=== PATIENT | female | born 1930 | race Caucasian/White ===

== ENCOUNTER 2018-10-02 22:05 | Inpatient (IN) | payer MEDICARE, OTHER | END 2018-10-05 14:30 | disposition designated cancer center or children's hospital (05) | LOC: 4TH 22:05 | DX: N17.9 Acute kidney failure, unspecified (principal); I10 Essential (primary) hypertension; F03.90 Unspecified dementia, unspecified severity, without behavioral disturbance, psychotic disturbance, mood disturbance, and anxiety; R79.89 Other specified abnormal findings of blood chemistry; E03.9 Hypothyroidism, unspecified; R63.4 Abnormal weight loss; K21.9 Gastro-esophageal reflux disease without esophagitis; M19.91 Primary osteoarthritis, unspecified site; F41.9 Anxiety disorder, unspecified; F32.9 Major depressive disorder, single episode, unspecified ==

== ENCOUNTER 2018-10-06 13:32 | Emergency (ER) | payer MEDICARE ==
[~2018-10-06] VITALS: Ht 162.6 cm; Wt 77.1 kg
[~2018-10-06 13:32] MED LIST: ACET-2267 PO; AMOX500C2 PO; DOCU-143 PO; FURO40TA4 PO; LEVO137T40 PO; METO2.5T PO; NIAC-4 PO; ONDN4T PO; RANI-10 PO; SOLI10TA2 PO; SULF1TAB35 PO
--- OUTSIDE RECORDS SUMMARY | 2018-10-06 13:39 | XMS REPORT | Continuity of Care Document ---
Author Author [facility] Address Unknown Phone Unavailable Allergies Active Description Code Type Severity Reaction Onset Reported/Identified Relationship to Patient Clinical Status Yes citalopram [id number] Drug Allergy Unknown N/A 10/02/2018 Yes No Known Drug Allergies [id number] Drug Allergy Unknown N/A 10/02/2018 Medications There is no data. Problems Date Dx Coded Attending Type Code Diagnosis Diagnosed By 05/16/2017 ROCÍO CALLAWAY, CIERRA Dumont N39.0 Urinary tract infection, site not specified 10/04/2018 GORDON CHAVEZ MD Ot E03.9 HYPOTHYROIDISM, UNSPECIFIED 10/04/2018 GORDON CHAVEZ MD Ot F03.90 UNSPECIFIED DEMENTIA WITHOUT BEHAVIORAL 10/04/2018 GORDON CHAVEZ MD Ot F32.9 MAJOR DEPRESSIVE DISORDER, SINGLE EPISOD 10/04/2018 GORDON CHAVEZ MD Ot F41.9 ANXIETY DISORDER, UNSPECIFIED 10/04/2018 GORDON CHAVEZ MD Ot I10 ESSENTIAL (PRIMARY) HYPERTENSION 10/04/2018 GORDON CHAVEZ MD Ot K21.9 GASTRO-ESOPHAGEAL REFLUX DISEASE WITHOUT 10/04/2018 GORDON CHAVEZ MD Ot M19.91 PRIMARY OSTEOARTHRITIS, UNSPECIFIED SITE 10/04/2018 GORDON CHAVEZ MD Ot N17.9 ACUTE KIDNEY FAILURE, UNSPECIFIED 10/04/2018 GORDON CHAVEZ MD Ot R63.4 ABNORMAL WEIGHT LOSS 10/04/2018 GORDON CHAVEZ MD Ot R79.89 OTHER SPECIFIED ABNORMAL FINDINGS OF BLO 10/04/2018 GORDON CHAVEZ MD Ot E03.9 HYPOTHYROIDISM, UNSPECIFIED 10/04/2018 GORDON CHAVEZ MD Ot F03.90 UNSPECIFIED DEMENTIA WITHOUT BEHAVIORAL 10/04/2018 GORDON CHAVEZ MD Ot F32.9 MAJOR DEPRESSIVE DISORDER, SINGLE EPISOD 10/04/2018 GORDON CHAVEZ MD Ot F41.9 ANXIETY DISORDER, UNSPECIFIED 10/04/2018 GORDON CHAVEZ MD Ot I10 ESSENTIAL (PRIMARY) HYPERTENSION 10/04/2018 GORDON CHAVEZ MD Ot K21.9 GASTRO-ESOPHAGEAL REFLUX DISEASE WITHOUT 10/04/2018 GORDON CHAVEZ MD Ot M19.91 PRIMARY OSTEOARTHRITIS, UNSPECIFIED SITE 10/04/2018 GORDON CHAVEZ MD Ot N17.9 ACUTE KIDNEY FAILURE, UNSPECIFIED 10/04/2018 GORDON CHAVEZ MD Ot R63.4 ABNORMAL WEIGHT LOSS 10/04/2018 GORDON CHAVEZ MD Ot R79.89 OTHER SPECIFIED ABNORMAL FINDINGS OF BLO 10/05/2018 GORDON CHAVEZ MD Ot E03.9 HYPOTHYROIDISM, UNSPECIFIED 10/05/2018 GORDON CHAVEZ MD Ot F03.90 UNSPECIFIED DEMENTIA WITHOUT BEHAVIORAL 10/05/2018 GORDON CHAVEZ MD Ot F32.9 MAJOR DEPRESSIVE DISORDER, SINGLE EPISOD 10/05/2018 GORDON CHAVEZ MD Ot F41.9 ANXIETY DISORDER, UNSPECIFIED 10/05/2018 GORDON CHAVEZ MD Ot I10 ESSENTIAL (PRIMARY) HYPERTENSION 10/05/2018 GORDON CHAVEZ MD Ot K21.9 GASTRO-ESOPHAGEAL REFLUX DISEASE WITHOUT 10/05/2018 GORDON CHAVEZ MD Ot M19.91 PRIMARY OSTEOARTHRITIS, UNSPECIFIED SITE 10/05/2018 GORDON CHAVEZ MD Ot N17.9 ACUTE KIDNEY FAILURE, UNSPECIFIED 10/05/2018 GORDON CHAVEZ MD Ot R63.4 ABNORMAL WEIGHT LOSS 10/05/2018 OGRDON CHAVEZ MD Ot R79.89 OTHER SPECIFIED ABNORMAL FINDINGS OF BLO Procedures Code [place] [address] CULTURE AEROBIC IDENTIFY CIERRA ALFORD MD 05/16/2017 96108 URINE CULTURE/COLONY COUNT CIERRA ALFORD MD 05/16/2017 51632 MICROBE SUSCEPTIBLE RENE CIERRA ALFORD MD 05/16/2017 Results Test Result Range Complete blood count (CBC) with automated white blood cell (WBC) differential - 10/03/18 05:29 Blood leukocytes automated count (number/volume) 10.9 10*3/uL 4.3-11.0 Blood erythrocytes automated count (number/volume) 3.33 10*6/uL 4.35-5.85 Venous blood hemoglobin measurement (mass/volume) 11.0 g/dL 11.5-16.0 Blood hematocrit (volume fraction) 33 % 35-52 Automated erythrocyte mean corpuscular volume 100 [foz_us] 80-99 Automated erythrocyte mean corpuscular hemoglobin (mass per erythrocyte) 33 pg 25-34 Automated erythrocyte mean corpuscular hemoglobin concentration measurement ( mass/volume) 33 g/dL 32-36 Automated erythrocyte distribution width ratio 14.5 % 10.0-14.5 Automated blood platelet count (count/volume) 151 10*3/uL 130-400 Automated blood platelet mean volume measurement 10.7 [foz_us] 7.4-10.4 Automated blood neutrophils/100 leukocytes 78 % 42-75 Automated blood lymphocytes/100 leukocytes 12 % 12-44 Blood monocytes/100 leukocytes 10 % 0-12 Automated blood eosinophils/100 leukocytes 0 % 0-10 Automated blood basophils/100 leukocytes 0 % 0-10 Blood neutrophils automated count (number/volume) 8.5 10*3 1.8-7.8 Blood lymphocytes automated count (number/volume) 1.3 10*3 1.0-4.0 Blood monocytes automated count (number/volume) 1.0 10*3 0.0-1.0 Automated eosinophil count 0.0 10*3/uL 0.0-0.3 Automated blood basophil count (count/volume) 0.0 10*3/uL 0.0-0.1 Comprehensive metabolic panel - 10/03/18 05:29 Serum or plasma sodium measurement (moles/volume) 139 mmol/L 135-145 Serum or plasma potassium measurement (moles/volume) 3.5 mmol/L 3.6-5.0 Serum or plasma chloride measurement (moles/volume) 100 mmol/L 98-107 Carbon dioxide 26 mmol/L 21-32 Serum or plasma anion gap determination (moles/volume) 13 mmol/L 5-14 Serum or plasma urea nitrogen measurement (mass/volume) 56 mg/dL 7-18 Serum or plasma creatinine measurement (mass/volume) 3.20 mg/dL 0.60-1.30 Serum or plasma urea nitrogen/creatinine mass ratio 18 NRG Serum or plasma creatinine measurement with calculation of estimated glomerular filtration rate 14 NRG Serum or plasma glucose measurement (mass/volume) 122 mg/dL 70-105 Serum or plasma calcium measurement (mass/volume) 9.4 mg/dL 8.5-10.1 Serum or plasma total bilirubin measurement (mass/volume) 0.7 mg/dL 0.1-1.0 Serum or plasma alkaline phosphatase measurement (enzymatic activity/volume) 47 U/L 40-136 Serum or plasma aspartate aminotransferase measurement (enzymatic activity/ volume) 20 U/L 5-34 Serum or plasma alanine aminotransferase measurement (enzymatic activity/volume ) 9 U/L 0-55 Serum or plasma protein measurement (mass/volume) 6.7 g/dL 6.4-8.2 Serum or plasma albumin measurement (mass/volume) 3.8 g/dL 3.2-4.5 CALCIUM CORRECTED 9.6 mg/dL 8.5-10.1 Serum or plasma troponin i.cardiac measurement (mass/volume) - 10/03/18 05:29 Serum or plasma troponin i.cardiac measurement (mass/volume) < ng/ mL <0.028 Whole blood basic metabolic panel - 10/04/18 06:19 Serum or plasma sodium measurement (moles/volume) 138 mmol/L 135-145 Serum or plasma potassium measurement (moles/volume) 3.3 mmol/L 3.6-5.0 Serum or plasma chloride measurement (moles/volume) 103 mmol/L 98-107 Carbon dioxide 26 mmol/L 21-32 Serum or plasma anion gap determination (moles/volume) 9 mmol/L 5-14 Serum or plasma urea nitrogen measurement (mass/volume) 34 mg/dL 7-18 Serum or plasma creatinine measurement (mass/volume) 1.71 mg/dL 0.60-1.30 Serum or plasma urea nitrogen/creatinine mass ratio 20 NRG Serum or plasma creatinine measurement with calculation of estimated glomerular filtration rate 28 NRG Serum or plasma glucose measurement (mass/volume) 102 mg/dL 70-105 Serum or plasma calcium measurement (mass/volume) 8.9 mg/dL 8.5-10.1 Complete blood count (CBC) with automated white blood cell (WBC) differential - 10/04/18 06:19 Blood leukocytes automated count (number/volume) 6.4 10*3/uL 4.3-11.0 Blood erythrocytes automated count (number/volume) 3.09 10*6/uL 4.35-5.85 Venous blood hemoglobin measurement (mass/volume) 10.5 g/dL 11.5-16.0 Blood hematocrit (volume fraction) 31 % 35-52 Automated erythrocyte mean corpuscular volume 101 [foz_us] 80-99 Automated erythrocyte mean corpuscular hemoglobin (mass per erythrocyte) 34 pg 25-34 Automated erythrocyte mean corpuscular hemoglobin concentration measurement ( mass/volume) 34 g/dL 32-36 Automated erythrocyte distribution width ratio 14.7 % 10.0-14.5 Automated blood platelet count (count/volume) 137 10*3/uL 130-400 Automated blood platelet mean volume measurement 10.1 [foz_us] 7.4-10.4 Automated blood neutrophils/100 leukocytes 68 % 42-75 Automated blood lymphocytes/100 leukocytes 19 % 12-44 Blood monocytes/100 leukocytes 11 % 0-12 Automated blood eosinophils/100 leukocytes 2 % 0-10 Automated blood basophils/100 leukocytes 0 % 0-10 Blood neutrophils automated count (number/volume) 4.4 10*3 1.8-7.8 Blood lymphocytes automated count (number/volume) 1.2 10*3 1.0-4.0 Blood monocytes automated count (number/volume) 0.7 10*3 0.0-1.0 Automated eosinophil count 0.1 10*3/uL 0.0-0.3 Automated blood basophil count (count/volume) 0.0 10*3/uL 0.0-0.1 Complete blood count (CBC) with automated white blood cell (WBC) differential - 10/05/18 05:17 Blood leukocytes automated count (number/volume) 4.7 10*3/uL 4.3-11.0 Blood erythrocytes automated count (number/volume) 3.15 10*6/uL 4.35-5.85 Venous blood hemoglobin measurement (mass/volume) 10.2 g/dL 11.5-16.0 Blood hematocrit (volume fraction) 32 % 35-52 Automated erythrocyte mean corpuscular volume 100 [foz_us] 80-99 Automated erythrocyte mean corpuscular hemoglobin (mass per erythrocyte) 32 pg 25-34 Automated erythrocyte mean corpuscular hemoglobin concentration measurement ( mass/volume) 32 g/dL 32-36 Automated erythrocyte distribution width ratio 14.2 % 10.0-14.5 Automated blood platelet count (count/volume) 158 10*3/uL 130-400 Automated blood platelet mean volume measurement 9.7 [foz_us] 7.4-10.4 Automated blood neutrophils/100 leukocytes 58 % 42-75 Automated blood lymphocytes/100 leukocytes 28 % 12-44 Blood monocytes/100 leukocytes 9 % 0-12 Automated blood eosinophils/100 leukocytes 5 % 0-10 Automated blood basophils/100 leukocytes 0 % 0-10 Blood neutrophils automated count (number/volume) 2.7 10*3 1.8-7.8 Blood lymphocytes automated count (number/volume) 1.3 10*3 1.0-4.0 Blood monocytes automated count (number/volume) 0.4 10*3 0.0-1.0 Automated eosinophil count 0.2 10*3/uL 0.0-0.3 Automated blood basophil count (count/volume) 0.0 10*3/uL 0.0-0.1 Whole blood basic metabolic panel - 10/05/18 05:17 Serum or plasma sodium measurement (moles/volume) 137 mmol/L 135-145 Serum or plasma potassium measurement (moles/volume) 3.5 mmol/L 3.6-5.0 Serum or plasma chloride measurement (moles/volume) 105 mmol/L 98-107 Carbon dioxide 26 mmol/L 21-32 Serum or plasma anion gap determination (moles/volume) 6 mmol/L 5-14 Serum or plasma urea nitrogen measurement (mass/volume) 27 mg/dL 7-18 Serum or plasma creatinine measurement (mass/volume) 1.32 mg/dL 0.60-1.30 Serum or plasma urea nitrogen/creatinine mass ratio 20 NRG Serum or plasma creatinine measurement with calculation of estimated glomerular filtration rate 38 NRG Serum or plasma glucose measurement (mass/volume) 91 mg/dL 70-105 Serum or plasma calcium measurement (mass/volume) 9.0 mg/dL 8.5-10.1 Encounters ACCT No. Visit Date/Time Discharge Status Pt. Type Provider Facility Loc./Unit Complaint [id number] 05/16/2017 13:07:00 05/16/2017 13:07:00 DIS Outpatient ROCÍO CALLAWAY, [facility] LAB [id number] 09/14/2018 08:21:02 ACT Unknown [id number] 10/02/2018 22:05:00 10/05/2018 14:30:00 DIS Inpatient GORDON CHAVEZ MD [facility] 4TH POSSIBLE RENAL FAILURE, POSSIBLE SUBACUTE [place] [id number] 10/06/2018 13:34:00 ACT Emergency FLORENTINO CHAVEZ MDNEY K [facility] ER [id number] 03/20/2018 11:05:07 ACT Document Registration
[2018-10-06 14:06] LABS: BASOPHILS % (AUTO) 0 % (0-10); EOSINOPHILS % (AUTO) 0 % (0-10); HEMATOCRIT 37 % (35-52); HEMOGLOBIN 12.3 G/DL (11.5-16.0); LYMPHOCYTES # (AUTO) 0.7 X 10^3 (1.0-4.0); LYMPHOCYTES % (AUTO) 8 % (12-44); MEAN CORPUSCULAR HEMOGLOBIN 34 PG (25-34); MEAN CORPUSCULAR HGB CONC 33 G/DL (32-36); MEAN CORPUSCULAR VOLUME 100 FL (80-99); MEAN PLATELET VOLUME 10.1 FL (7.4-10.4); MONOCYTES # (AUTO) 0.8 X 10^3 (0.0-1.0); MONOCYTES % (AUTO) 10 % (0-12); NEUTROPHILS # (AUTO) 7.1 X 10^3 (1.8-7.8); NEUTROPHILS % (AUTO) 82 % (42-75); PLATELET COUNT 150 10^3/uL (130-400); RED CELL DISTRIBUTION WIDTH 14.6 % (10.0-14.5); WHITE BLOOD COUNT 8.7 10^3/uL (4.3-11.0)
[2018-10-06 14:23] LABS: ALANINE AMINOTRANSFERASE 11 U/L (0-55); ALBUMIN 3.5 GM/DL (3.2-4.5); ALKALINE PHOSPHATASE 42 U/L (40-136); BILIRUBIN,TOTAL 0.7 MG/DL (0.1-1.0); BUN/CREATININE RATIO 19; CALCIUM 9.8 MG/DL (8.5-10.1); CARBON DIOXIDE 20 MMOL/L (21-32); CHLORIDE 104 MMOL/L (98-107); CREATININE SERUM 1.32 MG/DL (0.60-1.30); GFR ESTIMATED 38; GLUCOSE 111 MG/DL (70-105); POTASSIUM 4.8 MMOL/L (3.6-5.0); SODIUM 138 MMOL/L (135-145)
--- NOTE | 2018-10-06 14:28 | ED General ---
General Chief Complaint: Altered Mental Status Stated Complaint: LETHARGIC Nursing Triage Note: pt presents to ed from [facility] for lethargy, sluggish pupils, and tachycardia. according to custodial staff pt also is requiring 2 l 02 per nc. Nursing Sepsis Screen: No Definite Risk Source of Information: EMS, Old Records Exam Limitations: No Limitations History of Present Illness Date Seen by Provider: Oct 06, 2018 Time Seen by Provider: 14:20 Initial Comments The patient is an 88-year-old white female resident of [facility] in [place]. She was admitted here last week after she had been found to be performing poorly at the custodial. Her creatinine had climbed to the range of 3.5. She was also said to have lost considerable weight over the past several months. Her weight at that admission was about 190 pounds. She responded to fluid replacement and her creatinine fell into the 1.5 range. She was also noted by workup at the emergency room in [place] to have a slightly elevated troponin at that time. Her children arrived after she did and reports that the concern relayed to them by the custodial was that she seemed to be less alert than usual. The daughter relates that this happens at times in her observation Timing/Duration: 4-6 Hours Allergies and Home Medications Allergies Coded Allergies: citalopram (Verified Allergy, Unknown, 10/02/18) Home Medications Acetaminophen 500 Mg Tablet, 500 MG PO BID, (Reported) Amoxicillin 500 Mg Capsule, 2,000 MG PO UD PRN for DENTAL APPT, (Reported) TAKES 4 (500MG) CAPSULES ONE HOUR PRIOR TO DENTAL APPOINTMENT Docusate Sodium 100 Mg Capsule, 100 MG PO BID, (Reported) Levothyroxine Sodium 137 Mcg Tablet, 137 MCG PO 0730, (Reported) Metolazone 2.5 Mg Tablet, 2.5 MG PO DAILY, (Reported) Niacin 500 Mg Tab.er.24h, 500 MG PO DAILY, (Reported) Ondansetron HCl 4 Mg Tab, 4 MG PO Q6H PRN for NAUSEA/VOMITING-1ST LINE, ( Reported) Ranitidine HCl 150 Mg Tablet, 150 MG PO BID, (Reported) Solifenacin Succinate 10 Mg Tablet, 10 MG PO HS, (Reported) Patient Home Medication List Home Medication List Reviewed: Yes Review of Systems Review of Systems Constitutional: other Past Ililjou-Pdplzp-Zejiha Hx Patient Social History Alcohol Use: Denies Use Recreational Drug Use: No Smoking Status: Never a Smoker Recent Foreign Travel: No Contact w/Someone Who Travel: No Recent Infectious Disease Expo: No Recent Hopitalizations: No Immunizations Up To Date PED Vaccines UTD: Yes Date of Pneumonia Vaccine: Aug 05, 2017 Date of Influenza Vaccine: May 14, 2018 Seasonal Allergies Seasonal Allergies: No Past Medical History Surgeries: No Orthopedic Respiratory: No Cardiac: Yes (chronic edema) High Cholesterol, Hypertension Neurological: No Genitourinary: Yes (urinary retention) Renal Failure Gastrointestinal: Yes Gastroesophageal Reflux, Chronic Constipation Musculoskeletal: Yes Degenerate Disk Disease, Arthritis Endocrine: Yes Hypothyroidsim HEENT: No Cancer: No Anxiety, Depression Integumentary: No Blood Disorders: No Adverse Reaction/Blood Tranf: No Family Medical History Asthma, Heart Disease, Cancer Physical Exam Vital Signs Vital Signs - First Documented 10/06/18 13:58 Temp 98.0 Pulse 130 Resp 22 B/P (MAP) 120/92 (101) Pulse Ox 92 Capillary Refill : Less Than 3 Seconds Height, Weight, BMI Height: 5'4.00" Weight: 170lbs. 0.0oz. [id number]; 31.8 BMI Method:Estimated General Appearance: Other (she speaks when spoken to but is obviously confused) Eyes: Bilateral Eye Normal Inspection HEENT: Normal ENT Inspection Neck: Normal Inspection Respiratory: Chest Non Tender, Lungs Clear, Normal Breath Sounds, No Accessory Muscle Use, No Respiratory Distress Cardiovascular: Irregularly Irregular Gastrointestinal: Normal Bowel Sounds, No Organomegaly, No Pulsatile Mass, Non Tender, Soft Comments Legs are very swollen at the ankles. The daughter states this is been present for many years. They do not pit much and suggests lymphedema Progress/Results/Core Measures Suspected Sepsis Recent Fever Within 48 Hours: No Infection Criteria Present: None New/Unexplained Altered Menta: Yes Sepsis Screen: No Definite Risk SIRS Temperature:98.0 Pulse: 130 Respiratory Rate: 22 Laboratory Tests 10/06/18 13:40: White Blood Count 8.7 Blood Pressure 120 /92 Mean: 101 Laboratory Tests 10/06/18 13:40: Creatinine 1.32H, Platelet Count 150, Total Bilirubin 0.7 Results/Orders Lab Results Laboratory Tests Test 10/06/18 13:40 10/06/18 15:32 Range/Units White Blood Count 8.7 4.3-11.0 10^3/uL Red Blood Count 3.67 L 4.35-5.85 10^6/uL Hemoglobin 12.3 # 11.5-16.0 G/DL Hematocrit 37 35-52 % Mean Corpuscular Volume 100 H 80-99 FL Mean Corpuscular Hemoglobin 34 25-34 PG Mean Corpuscular Hemoglobin Concent 33 32-36 G/DL Red Cell Distribution Width 14.6 H 10.0-14.5 % Platelet Count 150 130-400 10^3/uL Mean Platelet Volume 10.1 7.4-10.4 FL Neutrophils (%) (Auto) 82 H 42-75 % Lymphocytes (%) (Auto) 8 L 12-44 % Monocytes (%) (Auto) 10 0-12 % Eosinophils (%) (Auto) 0 0-10 % Basophils (%) (Auto) 0 0-10 % Neutrophils # (Auto) 7.1 1.8-7.8 X 10^3 Lymphocytes # (Auto) 0.7 L 1.0-4.0 X 10^3 Monocytes # (Auto) 0.8 0.0-1.0 X 10^3 Eosinophils # (Auto) 0.0 0.0-0.3 10^3/uL Basophils # (Auto) 0.0 0.0-0.1 10^3/uL Neutrophils % (Manual) 86 % Lymphocytes % (Manual) 8 % Monocytes % (Manual) 6 % Eosinophils % (Manual) 0 % Basophils % (Manual) 0 % Band Neutrophils 0 % Blood Morphology Comment NORMAL Sodium Level 138 135-145 MMOL/L Potassium Level 4.8 3.6-5.0 MMOL/L Chloride Level 104 98-107 MMOL/L Carbon Dioxide Level 20 L 21-32 MMOL/L Anion Gap 14 5-14 MMOL/L Blood Urea Nitrogen 25 H 7-18 MG/DL Creatinine 1.32 H 0.60-1.30 MG/DL Estimat Glomerular Filtration Rate 38 BUN/Creatinine Ratio 19 Glucose Level 111 H 70-105 MG/DL Calcium Level 9.8 8.5-10.1 MG/DL Corrected Calcium 10.2 H 8.5-10.1 MG/DL Total Bilirubin 0.7 0.1-1.0 MG/DL Aspartate Amino Transf (AST/SGOT) 29 5-34 U/L Alanine Aminotransferase (ALT/SGPT) 11 0-55 U/L Alkaline Phosphatase 42 40-136 U/L Troponin I < 0.028 <0.028 NG/ML Total Protein 7.0 6.4-8.2 GM/DL Albumin 3.5 3.2-4.5 GM/DL Urine Color YELLOW Urine Clarity CLEAR Urine pH 5 5-9 Urine Specific Monarch 1.010 L 1.016-1.022 Urine Protein 1+ H NEGATIVE Urine Glucose (UA) NEGATIVE NEGATIVE Urine Ketones NEGATIVE NEGATIVE Urine Nitrite NEGATIVE NEGATIVE Urine Bilirubin NEGATIVE NEGATIVE Urine Urobilinogen NORMAL NORMAL MG/DL Urine Leukocyte Esterase 1+ H NEGATIVE Urine RBC (Auto) NEGATIVE NEGATIVE Urine RBC NONE /HPF Urine WBC RARE /HPF Urine Squamous Epithelial Cells 2-5 /HPF Urine Crystals NONE /LPF Urine Bacteria NONE /HPF Urine Casts NONE /LPF Urine Mucus NEGATIVE /LPF Urine Culture Indicated NO My Orders Orders - GORDON CHAVEZ MD Cbc With Automated Diff (10/06/18 13:47) Comprehensive Metabolic Panel (10/06/18 13:47) Troponin I (10/06/18 13:47) Ua Culture If Indicated (10/06/18 13:47) Manual Differential (10/06/18 13:40) Ekg Tracing (10/06/18 15:51) Vital Signs/I&O 10/06/18 13:58 Temp 98.0 Pulse 130 Resp 22 B/P (MAP) 120/92 (101) Pulse Ox 92 Capillary Refill : Less Than 3 Seconds Blood Pressure Mean: 101 Departure Communication (Admissions) CBC and CMP look as good or better than on discharge. UA shows no evidence of urinary tract infection Impression Primary Impression: dementia Disposition: 01 HOME, SELF-CARE Condition: Stable/Unchanged Departure-Patient Inst. Decision time for Depature: 15:56 Referrals: CYNTHIA CARRERA MD (PCP/Family) Primary Care Physician Patient Instructions: Tips for Caregivers of People With Alzheimer Disease Add. Discharge Instructions: All discharge instructions reviewed with patient and/or family. Voiced understanding. Continue present medications and routines. Encourage fluid intake GORDON CHAVEZ MD Oct 06, 2018 14:28
[2018-10-06 14:50] LABS: BAND NEUTROPHILS 0 %; BASOPHILS % (MANUAL) 0 %; EOSINOPHILS % (MANUAL) 0 %; LYMPHOCYTES % (MANUAL) 8 %; MONOCYTES % (MANUAL) 6 %; NEUTROPHILS % (MANUAL) 86 %; RBC MORPH NORMAL
[2018-10-06 15:37] LABS: BILIRUBIN,URINE NEGATIVE (NEGATIVE); CLARITY,URINE CLEAR; COLOR,URINE YELLOW; GLUCOSE, URINE (UA) NEGATIVE (NEGATIVE); KETONES,URINE NEGATIVE (NEGATIVE); LEUKOCYTE ESTERASE ,URINE 1+ (NEGATIVE); NITRITE,URINE NEGATIVE (NEGATIVE); PH,URINE 5 (5-9); PROTEIN,URINE 1+ (NEGATIVE); UROBILINOGEN,URINE NORMAL (NORMAL)
[2018-10-06 15:46] LABS: WBC,URINE RARE /HPF
[2018-10-06] MEDS ORDERED: METO50TA15 PO (16:06)
[2018-10-06 16:22] VITALS: BP 97/68
== END 2018-10-06 16:22 | disposition home or self-care (01) ==
LOC: EDUNIT# 13:32 → ER 13:34
DX: F03.90 Unspecified dementia, unspecified severity, without behavioral disturbance, psychotic disturbance, mood disturbance, and anxiety (principal); E78.00 Pure hypercholesterolemia, unspecified; I10 Essential (primary) hypertension; K21.9 Gastro-esophageal reflux disease without esophagitis; E03.9 Hypothyroidism, unspecified; F41.9 Anxiety disorder, unspecified; F32.9 Major depressive disorder, single episode, unspecified; Z82.49 Family history of ischemic heart disease and other diseases of the circulatory system; Z87.19 Personal history of other diseases of the digestive system; Z87.448 Personal history of other diseases of urinary system; Z88.8 Allergy status to other drugs, medicaments and biological substances; Z98.890 Other specified postprocedural states
CPT/HCPCS: 36415; 51701; 80053; 81000; 84484; 85007; 85027

== ENCOUNTER 2018-10-09 11:10 | Emergency (ER) | payer MEDICARE ==
[~2018-10-09] VITALS: Ht 162.6 cm; Wt 77.1 kg
[~2018-10-09 11:10] MED LIST changes: +METO50TA15 PO
[2018-10-09 11:25] LABS: BASOPHILS % (AUTO) 0 % (0-10); EOSINOPHILS # (AUTO) 0.2 10^3/uL (0.0-0.3); EOSINOPHILS % (AUTO) 4 % (0-10); HEMATOCRIT 34 % (35-52); HEMOGLOBIN 11.4 G/DL (11.5-16.0); LYMPHOCYTES # (AUTO) 1.1 X 10^3 (1.0-4.0); LYMPHOCYTES % (AUTO) 19 % (12-44); MEAN CORPUSCULAR HEMOGLOBIN 33 PG (25-34); MEAN CORPUSCULAR HGB CONC 33 G/DL (32-36); MEAN CORPUSCULAR VOLUME 99 FL (80-99); MEAN PLATELET VOLUME 10.8 FL (7.4-10.4); MONOCYTES # (AUTO) 0.7 X 10^3 (0.0-1.0); MONOCYTES % (AUTO) 13 % (0-12); NEUTROPHILS # (AUTO) 3.6 X 10^3 (1.8-7.8); NEUTROPHILS % (AUTO) 64 % (42-75); PLATELET COUNT 181 10^3/uL (130-400); RED CELL DISTRIBUTION WIDTH 14.2 % (10.0-14.5); WHITE BLOOD COUNT 5.6 10^3/uL (4.3-11.0)
--- OUTSIDE RECORDS SUMMARY | 2018-10-09 11:25 | XMS REPORT | Continuity of Care Document ---
Author Author [facility] Address Unknown Phone Unavailable Allergies Active Description Code Type Severity Reaction Onset Reported/Identified Relationship to Patient Clinical Status Yes citalopram [id number] Drug Allergy Unknown N/A 10/02/2018 Yes No Known Drug Allergies [id number] Drug Allergy Unknown N/A 10/02/2018 Medications There [...] MD Ot R63.4 ABNORMAL WEIGHT LOSS 10/05/2018 GORDON CHAVEZ MD Ot R79.89 OTHER SPECIFIED [...] MD Ot R63.4 ABNORMAL WEIGHT LOSS 10/05/2018 GORDON CHAVEZ MD Ot R79.89 OTHER SPECIFIED ABNORMAL FINDINGS OF BLO Procedures Code [place] [address] CULTURE AEROBIC IDENTIFY CIERRA ALFORD MD 05/16/2017 26042 URINE CULTURE/COLONY COUNT CIERRA ALFORD MD 05/16/2017 99355 MICROBE SUSCEPTIBLE RENE CIERRA ALFORD MD 05/16/2017 [...] plasma calcium measurement (mass/volume) 9.0 mg/dL 8.5-10.1 Complete blood count (CBC) with automated white blood cell (WBC) differential - 10/06/18 13:40 Blood leukocytes automated count (number/volume) 8.7 10*3/uL 4.3-11.0 Blood erythrocytes automated count (number/volume) 3.67 10*6/uL 4.35-5.85 Venous blood hemoglobin measurement (mass/volume) 12.3 g/dL 11.5-16.0 Blood hematocrit (volume fraction) 37 % 35-52 Automated erythrocyte mean corpuscular volume 100 [foz_us] 80-99 Automated erythrocyte mean corpuscular hemoglobin (mass per erythrocyte) 34 pg 25-34 Automated erythrocyte mean corpuscular hemoglobin concentration measurement ( mass/volume) 33 g/dL 32-36 Automated erythrocyte distribution width ratio 14.6 % 10.0-14.5 Automated blood platelet count (count/volume) 150 10*3/uL 130-400 Automated blood platelet mean volume measurement 10.1 [foz_us] 7.4-10.4 Automated blood neutrophils/100 leukocytes 82 % 42-75 Automated blood lymphocytes/100 leukocytes 8 % 12-44 Blood monocytes/100 leukocytes 10 % 0-12 Automated blood eosinophils/100 leukocytes 0 % 0-10 Automated blood basophils/100 leukocytes 0 % 0-10 Blood neutrophils automated count (number/volume) 7.1 10*3 1.8-7.8 Blood lymphocytes automated count (number/volume) 0.7 10*3 1.0-4.0 Blood monocytes automated count (number/volume) 0.8 10*3 0.0-1.0 Automated eosinophil count 0.0 10*3/uL 0.0-0.3 Automated blood basophil count (count/volume) 0.0 10*3/uL 0.0-0.1 Comprehensive metabolic panel - 10/06/18 13:40 Serum or plasma sodium measurement (moles/volume) 138 mmol/L 135-145 Serum or plasma potassium measurement (moles/volume) 4.8 mmol/L 3.6-5.0 Serum or plasma chloride measurement (moles/volume) 104 mmol/L 98-107 Carbon dioxide 20 mmol/L 21-32 Serum or plasma anion gap determination (moles/volume) 14 mmol/L 5-14 Serum or plasma urea nitrogen measurement (mass/volume) 25 mg/dL 7-18 Serum or plasma creatinine measurement (mass/volume) 1.32 mg/dL 0.60-1.30 Serum or plasma urea nitrogen/creatinine mass ratio 19 NRG Serum or plasma creatinine measurement with calculation of estimated glomerular filtration rate 38 NRG Serum or plasma glucose measurement (mass/volume) 111 mg/dL 70-105 Serum or plasma calcium measurement (mass/volume) 9.8 mg/dL 8.5-10.1 Serum or plasma total bilirubin measurement (mass/volume) 0.7 mg/dL 0.1-1.0 Serum or plasma alkaline phosphatase measurement (enzymatic activity/volume) 42 U/L 40-136 Serum or plasma aspartate aminotransferase measurement (enzymatic activity/ volume) 29 U/L 5-34 Serum or plasma alanine aminotransferase measurement (enzymatic activity/volume ) 11 U/L 0-55 Serum or plasma protein measurement (mass/volume) 7.0 g/dL 6.4-8.2 Serum or plasma albumin measurement (mass/volume) 3.5 g/dL 3.2-4.5 CALCIUM CORRECTED 10.2 mg/dL 8.5-10.1 Serum or plasma troponin i.cardiac measurement (mass/volume) - 10/06/18 13:40 Serum or plasma troponin i.cardiac measurement (mass/volume) < ng/ mL <0.028 Blood manual differential performed detection - 10/06/18 13:40 Blood monocytes/100 leukocytes 6 % NRG Manual blood segmented neutrophils/100 leukocytes 86 % NRG Blood band neutrophils/100 leukocytes 0 % NRG Manual blood lymphocytes/100 leukocytes 8 % NRG Manual eosinophils/100 leukocytes in nose 0 % NRG Manual blood basophils/100 leukocytes 0 % NRG Blood erythrocyte morphology finding identification NORMAL NRG Complete urinalysis with reflex to culture - 10/06/18 15:32 Urine color determination YELLOW NRG Urine clarity determination CLEAR NRG Urine pH measurement by test strip 5 5-9 Specific gravity of urine by test strip 1.010 1.016- 1.022 Urine protein assay by test strip, semi-quantitative 1+ NEGATIVE Urine glucose detection by automated test strip NEGATIVE NEGATIVE Erythrocytes detection in urine sediment by light microscopy NEGATIVE NEGATIVE Urine ketones detection by automated test strip NEGATIVE NEGATIVE Urine nitrite detection by test strip NEGATIVE NEGATIVE Urine total bilirubin detection by test strip NEGATIVE NEGATIVE Urine urobilinogen measurement by automated test strip (mass/volume) NORMAL NORMAL Urine leukocyte esterase detection by dipstick 1+ NEGATIVE Automated urine sediment erythrocyte count by microscopy (number/high power field) NONE NRG Automated urine sediment leukocyte count by microscopy (number/high power field ) RARE NRG Bacteria detection in urine sediment by light microscopy NONE NRG Squamous epithelial cells detection in urine sediment by light microscopy 2-5 NRG Crystals detection in urine sediment by light microscopy NONE NRG Casts detection in urine sediment by light microscopy NONE NRG Mucus detection in urine sediment by light microscopy NEGATIVE NRG Complete urinalysis with reflex to culture NO NRG Encounters ACCT No. Visit Date/Time Discharge Status Pt. Type Provider Facility Loc./Unit Complaint [id number] 05/16/2017 13:07:00 05/16/2017 13:07:00 DIS Outpatient ROCÍO CALLAWAY, [facility] LAB [id number] 09/14/2018 08:21:02 ACT Unknown [id number] 10/06/2018 13:34:00 10/06/2018 16:22:00 DIS Emergency GORDON CHAVEZ MD [facility] ER LETHARGIC [id number] 10/02/2018 22:05:00 10/05/2018 14:30:00 DIS Outpatient GODRON CHAVEZ MD [facility] 4TH POSSIBLE RENAL FAILURE, POSSIBLE SUBACUTE [place] [id number] 03/20/2018 11:05:07 ACT Document Registration
--- NOTE | 2018-10-09 11:54 | ED General ---
General Chief Complaint: Altered Mental Status Stated Complaint: DEMENTIA Nursing Triage Note: PATIENT HERE BY [facility] FROM [facility] FOR CONTINUED CONCERNS ABOUT CONFUSION. UPON ARRIVAL PATIENT IS A/O x4. Nursing Sepsis Screen: No Definite Risk Source of Information: Patient, EMS Exam Limitations: No Limitations (SHANNAN SAL) History of Present Illness Date Seen by Provider: Oct 09, 2018 Time Seen by Provider: 11:10 Initial Comments 88-year-old female who was brought to the emergency room by [facility] from [facility] in [facility] for concerns for continued confusion. The patient was admitted to the hospital early last week for acute renal failure and elevated troponin was discharged home and then presented again to the emergency room for increased weakness and possible renal failure on 10/06/17 and was discharged home with a diagnosis of dementia. The patient is alert and oriented on arrival to the emergency room. She reports that EMS came into her room and woke her up and brought her to the hospital. Her primary care physician is and wanted her to be seen and evaluated today. 1200: The patient's daughter has arrived at this time and reports that the patient is having increasing weakness not localized to one side and when she wakes up from sleep she is very confused. Timing/Duration: 1 Week Associated Systoms: Weakness (SHANNAN SAL) Associated Systoms: No Chest Pain, No Shortness of Air (RAMONA AYALA MD) Allergies and Home Medications Allergies Coded Allergies: citalopram (Verified Allergy, Unknown, 10/02/18) Home Medications Acetaminophen 500 Mg Tablet, 500 MG PO BID, (Reported) Amoxicillin 500 Mg Capsule, 2,000 MG PO UD PRN for DENTAL APPT, (Reported) TAKES 4 (500MG) CAPSULES ONE HOUR PRIOR TO DENTAL APPOINTMENT Docusate Sodium 100 Mg Capsule, 100 MG PO BID, (Reported) Levothyroxine Sodium 137 Mcg Tablet, 137 MCG PO 0730, (Reported) Metolazone 2.5 Mg Tablet, 2.5 MG PO DAILY, (Reported) Metoprolol Tartrate 50 Mg Tablet, 50 MG PO BID Prescribed by: GORDON CHAVEZ on 10/06/18 1606 Niacin 500 Mg Tab.er.24h, 500 MG PO DAILY, (Reported) Ondansetron HCl 4 Mg Tab, 4 MG PO Q6H PRN for NAUSEA/VOMITING-1ST LINE, ( Reported) Ranitidine HCl 150 Mg Tablet, 150 MG PO BID, (Reported) Solifenacin Succinate 10 Mg Tablet, 10 MG PO HS, (Reported) Patient Home Medication List Home Medication List Reviewed: Yes (HSANNAN SAL) Review of Systems Review of Systems Constitutional: see HPI, weakness Psychiatric/Neurological: See HPI, Other (confusion) (SHANNAN SAL) All Other Systems Reviewed Negative Unless Noted: Yes (SHANNAN SAL) Past Gtccolq-Hmuhvd-Hqumtx Hx Past Med/Social Hx: Reviewed Nursing Past Med/Soc Hx (SHANNAN SAL) Patient Social History Alcohol Use: Denies Use Recreational Drug Use: No Smoking Status: Never a Smoker 2nd Hand Smoke Exposure: No Recent Foreign Travel: No Contact w/Someone Who Travel: No Recent Infectious Disease Expo: No Recent Hopitalizations: No Physical Abuse: No Sexual Abuse: No (SHANNAN SAL) Immunizations Up To Date PED Vaccines UTD: Yes Date of Pneumonia Vaccine: Aug 05, 2017 Date of Influenza Vaccine: May 14, 2018 (SHANNAN SAL) Seasonal Allergies Seasonal Allergies: No (SHANNAN SAL) Past Medical History Surgeries: No Orthopedic Respiratory: No Cardiac: Yes (chronic edema) High Cholesterol, Hypertension Neurological: No Genitourinary: Yes (urinary retention) Renal Failure Gastrointestinal: Yes Gastroesophageal Reflux, Chronic Constipation Musculoskeletal: Yes Degenerate Disk Disease, Arthritis Endocrine: Yes Hypothyroidsim HEENT: No Cancer: No Anxiety, Depression Integumentary: No Blood Disorders: No Adverse Reaction/Blood Tranf: No (SHANNAN SAL) Family Medical History Reviewed Nursing Family Hx (SHANNAN SAL) Asthma, Heart Disease, Cancer (SHANNAN SAL) Physical Exam Vital Signs Vital Signs - First Documented 10/09/18 11:10 Temp 97.9 Pulse 80 Resp 16 B/P (MAP) 143/74 (97) Pulse Ox 97 O2 Delivery Nasal Cannula O2 Flow Rate 2.00 (RAMONA AYALA MD) Vital Signs Capillary Refill : Less Than 3 Seconds (SHANNAN SAL) Height, Weight, BMI Height: 5'4.00" Weight: 170lbs. 0.0oz. 77.693806vx; 31.8 BMI Method:Estimated General Appearance: No Apparent Distress, WD/WN Eyes: Bilateral Eye Normal Inspection, Bilateral Eye PERRL, Bilateral Eye EOMI HEENT: PERRL/EOMI, TMs Normal, Normal ENT Inspection, Pharynx Normal Neck: Full Range of Motion, Normal Inspection, Non Tender, Supple Respiratory: Chest Non Tender, Lungs Clear, Normal Breath Sounds, No Accessory Muscle Use, No Respiratory Distress, Other (wears 2 L of oxygen continuously) Cardiovascular: Regular Rate, Rhythm, No Edema, No Gallop, No JVD, No Murmur, Normal Peripheral Pulses Extremity: Normal Capillary Refill, Normal Inspection, Normal Range of Motion, Pedal Edema Neurologic/Psychiatric: Alert, Oriented x3, Normal Mood/Affect Skin: Normal Color, Warm/Dry (SHANNAN SAL) Gastrointestinal: Non Tender, Soft Back: Normal Inspection, No CVA Tenderness, No Vertebral Tenderness (RAMONA AYALA MD) Progress/Results/Core Measures Suspected Sepsis Recent Fever Within 48 Hours: No Infection Criteria Present: None New/Unexplained Altered Menta: Yes Sepsis Screen: No Definite Risk SIRS Temperature:97.9 Pulse: 80 Respiratory Rate: 16 Laboratory Tests 10/09/18 11:15: White Blood Count 5.6 Blood Pressure 143 /74 Mean: 97 Laboratory Tests 10/09/18 11:15: Platelet Count 181 10/09/18 11:36: Creatinine 1.10, Total Bilirubin 0.5 (SHANNAN SAL) Results/Orders Lab Results Laboratory Tests Test 10/09/18 11:15 10/09/18 11:36 10/09/18 12:35 Range/Units White Blood Count 5.6 4.3-11.0 10^3/uL Red Blood Count 3.45 L 4.35-5.85 10^6/uL Hemoglobin 11.4 L 11.5-16.0 G/DL Hematocrit 34 L 35-52 % Mean Corpuscular Volume 99 80-99 FL Mean Corpuscular Hemoglobin 33 25-34 PG Mean Corpuscular Hemoglobin Concent 33 32-36 G/DL Red Cell Distribution Width 14.2 10.0-14.5 % Platelet Count 181 130-400 10^3/uL Mean Platelet Volume 10.8 H 7.4-10.4 FL Neutrophils (%) (Auto) 64 42-75 % Lymphocytes (%) (Auto) 19 12-44 % Monocytes (%) (Auto) 13 H 0-12 % Eosinophils (%) (Auto) 4 0-10 % Basophils (%) (Auto) 0 0-10 % Neutrophils # (Auto) 3.6 1.8-7.8 X 10^3 Lymphocytes # (Auto) 1.1 1.0-4.0 X 10^3 Monocytes # (Auto) 0.7 0.0-1.0 X 10^3 Eosinophils # (Auto) 0.2 0.0-0.3 10^3/uL Basophils # (Auto) 0.0 0.0-0.1 10^3/uL B-Type Natriuretic Peptide 434.8 H <100.0 PG/ML Sodium Level 137 135-145 MMOL/L Potassium Level 3.6 3.6-5.0 MMOL/L Chloride Level 102 98-107 MMOL/L Carbon Dioxide Level 24 21-32 MMOL/L Anion Gap 11 5-14 MMOL/L Blood Urea Nitrogen 17 7-18 MG/DL Creatinine 1.10 0.60-1.30 MG/DL Estimat Glomerular Filtration Rate 47 BUN/Creatinine Ratio 15 Glucose Level 91 70-105 MG/DL Calcium Level 9.5 8.5-10.1 MG/DL Corrected Calcium 10.1 8.5-10.1 MG/DL Total Bilirubin 0.5 0.1-1.0 MG/DL Aspartate Amino Transf (AST/SGOT) 32 5-34 U/L Alanine Aminotransferase (ALT/SGPT) 19 0-55 U/L Alkaline Phosphatase 49 40-136 U/L Troponin I < 0.028 <0.028 NG/ML Total Protein 6.2 L 6.4-8.2 GM/DL Albumin 3.2 3.2-4.5 GM/DL Urine Color YELLOW Urine Clarity CLEAR Urine pH 6 5-9 Urine Specific [place] 1.010 L 1.016-1.022 Urine Protein NEGATIVE NEGATIVE Urine Glucose (UA) NEGATIVE NEGATIVE Urine Ketones NEGATIVE NEGATIVE Urine Nitrite NEGATIVE NEGATIVE Urine Bilirubin NEGATIVE NEGATIVE Urine Urobilinogen NORMAL NORMAL MG/DL Urine Leukocyte Esterase NEGATIVE NEGATIVE Urine RBC (Auto) NEGATIVE NEGATIVE Urine RBC NONE /HPF Urine WBC 2-5 /HPF Urine Squamous Epithelial Cells 5-10 /HPF Urine Crystals NONE /LPF Urine Bacteria TRACE /HPF Urine Casts NONE /LPF Urine Mucus NEGATIVE /LPF Urine Culture Indicated NO (RAMONA AYALA MD) My Orders Orders - RAMONA AYALA MD Chest 1 View, Ap/Pa Only (10/09/18 13:36) General/Regular (10/09/18 Lunch) (RAMONA AYALA MD) Vital Signs/I&O 10/09/18 11:10 Temp 97.9 Pulse 80 Resp 16 B/P (MAP) 143/74 (97) Pulse Ox 97 O2 Delivery Nasal Cannula O2 Flow Rate 2.00 (RAMONA AYALA MD) Vital Signs/I&O Capillary Refill : Less Than 3 Seconds (SHANNAN SAL) Blood Pressure Mean: 97 Progress Note : Progress Note I have seen and evaluated the patient and agree with above except as indicated. I agree with the plan of care. We have added CT scan of the head to evaluate for stroke given her report of right-sided weakness. On evaluation, her legs were noted to be swollen the family reports that this is actually much better than previous. Denies new breathing problems but has had some cough. She is on her typical 2 L of oxygen. Patient and family would like to be a evaluated for inpatient rehabilitation potentially given her increasing weakness over the past couple of months areas she did have a hospital stay several days ago and then had repeat visit to the emergency department for weakness. We will see about evaluation for inpatient rehabilitation. Monitor patient. 1400: Patient will be evaluated for fdc admission [facility] [place]. 1552: Patient has been accepted to [facility] in [place] for admission to their fdc unit. We're awaiting transport from the family. They' ve gone back to her previous facility to get her oxygen. Discharged to fdc care with return precautions and orders for PT, OT and ST evaluation and treatment. Patient and family verbalize understanding instructions and agreement with plan. (RAMONA AYALA MD) Diagnostic Imaging Diagonstic Imaging: CT Plain Films/CT/US/NM/MRI: head Comments [facility] [place] NAME: ABDIEL LEÓNAARON Newman [facility] REC#: [id number] PT STATUS: REG ER : 1930 PHYSICIAN: SHANNAN SAL ADMIT DATE: 10/09/18/ER Draft Date of Exam:10/09/18 CT HEAD WO PROCEDURE: CT head without contrast. TECHNIQUE: Multiple contiguous axial images were obtained through the brain without the use of intravenous contrast. INDICATION: Weakness, altered mental status. COMPARISON: None available. FINDINGS: No hyperdense hemorrhage or space-occupying mass. No hydrocephalus or midline shift. Periventricular white matter confluent hypoattenuation is most compatible with severe chronic microvascular ischemic disease. No features of acute territorial infarct by CT. No acute skull fracture. Paranasal sinuses and mastoid air cells are clear. IMPRESSION: 1. No acute intracranial process by CT. 2. Severe chronic microvascular ischemic disease in the deep white matter. Dictated on workstation # [id number] Dict: 10/09/18 1251 Trans: 10/09/18 1255 IMS [id number] Interpreted by: SONDRA GUERRA MD Electronically signed by: Diagonstic Imaging: Xray Plain Films/CT/US/NM/MRI: chest Comments NAME: PILI LEÓN V [facility] REC#: [id number] PT STATUS: REG ER : 1930 PHYSICIAN: RAMONA AYALA MD ADMIT DATE: 10/09/18/ER Draft Date of Exam:10/09/18 CHEST 1 VIEW, AP/PA ONLY Indication: Increasing confusion. Time of exam: 1:45 PM No prior studies are available for comparison. The heart size is normal. There appears to be some mild central congestion. There is minimal infiltrate or atelectasis in both bases, left greater. The left hemidiaphragm is obscured. There is some slight blunting of the left costophrenic angle which may indicate a small amount of pleural fluid. No pneumothorax is seen. Impression: Bibasilar infiltrate/atelectasis, left greater as well as perhaps a small amount of left pleural fluid. No other abnormality is seen. Dictated on workstation # [id number] Dict: 10/09/18 1353 Trans: 10/09/18 1356 CVB [id number] Interpreted by: NIK SHAH MD Electronically signed by: Reviewed: Reviewed by Me (RAMONA AYALA MD) Departure Impression Primary Impression: Vascular dementia Qualified Codes: F01.50 - Vascular dementia without behavioral disturbance Additional Impressions: Physical debility Heart failure Qualified Codes: I50.9 - Heart failure, unspecified Disposition: 01 HOME, SELF-CARE Condition: Stable Departure-Patient Inst. Decision time for Depature: 15:54 (RAMONA AYALA MD) Referrals: CYNTHIA CARRERA MD (PCP/Family) Primary Care Physician Patient Instructions: Dementia (DC), Generalized Weakness (DC), Heart Failure, Adult (DC) Add. Discharge Instructions: All discharge instructions reviewed with patient and/or family. Voiced understanding. Go to the fdc facility for admission there. Follow-up with your Dr. in a few days for recheck. Return for worse pain, fever, vomiting, weakness , breathing problems or other concerns as needed. Continued seizure oxygen and continue medications as previously prescribed. SHANNAN SAL Oct 09, 2018 11:54 RAMONA AYALA MD Oct 09, 2018 13:46
[2018-10-09] MEDS ORDERED: NS IV 500 ML 500 ML IV SCH (12:00)
[2018-10-09 12:02] LABS: ALBUMIN 3.2 GM/DL (3.2-4.5); BILIRUBIN,TOTAL 0.5 MG/DL (0.1-1.0); CALCIUM 9.5 MG/DL (8.5-10.1); CREATININE SERUM 1.1 MG/DL (0.60-1.30); POTASSIUM 3.6 MMOL/L (3.6-5.0); TOTAL PROTEIN 6.2 GM/DL (6.4-8.2)
[2018-10-09 12:48] LABS: BILIRUBIN,URINE NEGATIVE (NEGATIVE); CLARITY,URINE CLEAR; COLOR,URINE YELLOW; GLUCOSE, URINE (UA) NEGATIVE (NEGATIVE); KETONES,URINE NEGATIVE (NEGATIVE); LEUKOCYTE ESTERASE ,URINE NEGATIVE (NEGATIVE); NITRITE,URINE NEGATIVE (NEGATIVE); PH,URINE 6 (5-9); PROTEIN,URINE NEGATIVE (NEGATIVE); UROBILINOGEN,URINE NORMAL (NORMAL)
[2018-10-09 12:55] LABS: BACTERIA,URINE TRACE /HPF
--- NOTE | 2018-10-09 12:56 | Diagnostic Imaging Report ---
PROCEDURE: CT head without contrast. TECHNIQUE: Multiple contiguous axial images were obtained through the brain without the use of intravenous contrast. INDICATION: Weakness, altered mental status. COMPARISON: None available. FINDINGS: No hyperdense hemorrhage or space-occupying mass. No hydrocephalus or midline shift. Periventricular white matter confluent hypoattenuation is most compatible with severe chronic microvascular ischemic disease. No features of acute territorial infarct by CT. No acute skull fracture. Paranasal sinuses and mastoid air cells are clear. IMPRESSION: 1. No acute intracranial process by CT. 2. Severe chronic microvascular ischemic disease in the deep white matter. Dictated by: Dictated on workstation # [id number]
--- NOTE | 2018-10-09 13:56 | Diagnostic Imaging Report ---
Indication: Increasing confusion. Time of exam: 1:45 PM No prior studies are available for comparison. The heart size is normal. There appears to be some mild central congestion. There is minimal infiltrate or atelectasis in both bases, left greater. The left hemidiaphragm is obscured. There is some slight blunting of the left costophrenic angle which may indicate a small amount of pleural fluid. No pneumothorax is seen. Impression: Bibasilar infiltrate/atelectasis, left greater as well as perhaps a small amount of left pleural fluid. No other abnormality is seen. Dictated by: Dictated on workstation # [id number]
--- NOTE | 2018-10-09 15:41 | NUR ---
CM/SS responded to call. Patient and her daughter (Leann) in ED, Akiko has been declining and requiring more assistance than the assisted living facility can provide. Leann stated that [facility] was accepting her for Skilled placement. Spoke with Natividad Ferguson at [facility], they have accepted the patient and will need a CARE Assessment completed. Completed the CARE Assessment with the patient and sent by fax to [facility]. Copy of Care Assessment sent to Medical Records to go on patient chart.
[2018-10-09 16:20] VITALS: BP 143/74
== END 2018-10-09 16:55 | disposition home or self-care (01) ==
LOC: EDUNIT# 11:10 → ER 11:12
DX: F01.50 Vascular dementia, unspecified severity, without behavioral disturbance, psychotic disturbance, mood disturbance, and anxiety (principal); I11.0 Hypertensive heart disease with heart failure; I50.9 Heart failure, unspecified; R53.81 Other malaise; E78.00 Pure hypercholesterolemia, unspecified; K21.9 Gastro-esophageal reflux disease without esophagitis; E03.9 Hypothyroidism, unspecified; F41.9 Anxiety disorder, unspecified; F32.9 Major depressive disorder, single episode, unspecified; Z87.448 Personal history of other diseases of urinary system; Z88.8 Allergy status to other drugs, medicaments and biological substances; Z98.890 Other specified postprocedural states; Z82.49 Family history of ischemic heart disease and other diseases of the circulatory system
CPT/HCPCS: 36415; 70450; 71045; 80053; 81000; 83880; 84484; 85025; 93005

== ENCOUNTER 2019-04-14 20:22 | Emergency (ER) | payer MEDICARE ==
[~2019-04-14] VITALS: Ht 162.6 cm; Wt 85.7 kg
--- OUTSIDE RECORDS SUMMARY | 2019-04-14 20:27 | XMS REPORT ---
Author Author CYNTHIA CARRERA Organization [facility] Address [address] [place] [address] Care Team Providers Care Ic Designer [employer] Name Role Phone CYNTHIA CARRERA Unavailable PROBLEMS Type Condition ICD9-CM Code WHG82-WW Code Onset Dates Condition Status SNOMED Code Problem Generalized osteoarthrosis, unspecified site M15.9 Active 624560992 Problem B12 deficiency E53.8 Apr, Active 32186770 Problem Hyponatremia E87.1 Apr, Active 68818728 Problem Iron deficiency anemia D50.9 Apr, Active 26638379 Problem CKD (chronic kidney disease) stage 3, GFR 30-59 ml/min N18.3 Dec, Active 555353398 Problem Incontinence of urine R32 Oct, Active 750105084 Problem Degeneration of intervertebral disc, site unspecified GVV6531 Active Problem Vascular dementia without behavioral disturbance F01.50 Active [id number] Problem HTN (hypertension) I10 Apr, Active 32203863 Problem Acquired hypothyroidism E03.9 Active 306367173 Problem Reflux esophagitis K21.0 Active 243878832 Problem Severe obesity (BMI 35.0-39.9) with comorbidity E66.01 January, Active 327812102 Problem Pure hypercholesterolemia E78.00 Active 649862815 Problem Idiopathic chronic gout of foot without tophus, 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 Active 19543520 Problem GERD without esophagitis K21.9 Active 978543101 ALLERGIES No Information ENCOUNTERS Encounter Location Date Diagnosis [address] [address] Apr, [address] [address] Feb, [address] [address] Feb, [address] [address] January, Acquired hypothyroidism E03.9 ; Vascular dementia without behavioral disturbance F01.50 ; Pure hypercholesterolemia E78.00 ; Cellulitis of right lower extremity L03.115 and Hypoxia R09.[address] [address] January, [address] [address] January, Cellulitis of right lower extremity L03.115 and Cellulitis of left lower extremity L03.[address] [address] January, [address] [address] Dec, [address] [address] Dec, [address] [address] Dec, Generalized osteoarthrosis, unspecified site M15.9 ; B12 deficiency E53.8 ; Acquired hypothyroidism E03.9 ; Idiopathic chronic gout of foot without tophus, 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 [id number], [place] [address] Aug, [facility] [address] [id number], [place] [address] Jul, [facility] [address] [facility] [id number] [address] Dec, IMMUNIZATIONS No Known Immunizations SOCIAL HISTORY Never Assessed REASON FOR VISIT Requests return call PLAN OF CARE VITAL SIGNS MEDICATIONS Unknown Medications RESULTS No Results PROCEDURES No Known procedures INSTRUCTIONS MEDICATIONS ADMINISTERED No Known Medications MEDICAL (GENERAL) HISTORY Type Description Date Medical History Functional urinary incontinence Medical History Constipation Medical History Vitamin B12 deficiency Medical History Edema Medical History Essential hypertension Medical History Anemia, iron deficiency Medical History Edema Medical History Generalized osteoarthrosis, unspecified site Medical History Hypothyroidism Medical History Benign hypertension Surgical History Hip Replacement Surgical History Wrist Surgery Surgical History Ankle Surgery Hospitalization History multiple hospital stays
--- OUTSIDE RECORDS SUMMARY | 2019-04-14 20:29 | XMS REPORT | Continuity of Care Document ---
Author Organization Unknown Address Unknown Phone Unavailable Allergies There is no data. Medications There is no data. Problems Date Dx Coded Attending Type Code Diagnosis Diagnosed By 05/16/2017 CIERRA ALFORD MD N39.0 Urinary tract infection, site not specified Procedures Code [place] [address] CULTURE AEROBIC IDENTIFY CIERRA ALFORD MD 05/16/2017 70716 URINE CULTURE/COLONY COUNT CIERRA ALFORD MD 05/16/2017 10500 MICROBE SUSCEPTIBLE RENE CIERRA ALFORD MD 05/16/2017 Results There is no data. Encounters ACCT No. Visit Date/Time Discharge Status Pt. Type Provider Facility Loc./Unit Complaint [id number] 05/16/2017 13:07:00 05/16/2017 13:07:00 DIS Outpatient ROCÍO CALLAWAY, CIERRA [facility] LAB [id number] 10/12/2018 13:58:02 ACT Unknown [id number] 04/12/2019 14:00:00 ACT [facility]
--- NOTE | 2019-04-14 20:36 | ED GU-Female ---
General Stated Complaint: BACK PAIN; NAUSEA Source: patient, family, EMS Exam Limitations: no limitations History of Present Illness Date Seen by Provider: Apr 14, 2019 Time Seen by Provider: 20:25 Initial Comments 88-year-old female resident of [facility] presents with malaise, weakness and urinary urgency. She states that this feels like her previous episodes of urinary tract infections. She's had long-standing back pain but no recent flank pain. No nausea or vomiting reported. She's not had any fever or chills. Timing/Duration: yesterday Severity/Quality: moderate Location: suprapubic, left flank Radiation: none Activities at Onset: none Prior Genitourinary Problems: similar symptoms Associated Symptoms: dysuria, loss of bladder control Allergies and Home Medications Allergies Coded Allergies: citalopram (Verified Allergy, Unknown, 10/02/18) Home Medications Acetaminophen 500 Mg Tablet, 500 MG PO BID, (Reported) Amoxicillin 500 Mg Capsule, 2,000 MG PO UD PRN for DENTAL APPT, (Reported) TAKES 4 (500MG) CAPSULES ONE HOUR PRIOR TO DENTAL APPOINTMENT Docusate Sodium 100 Mg Capsule, 100 MG PO BID, (Reported) Levothyroxine Sodium 137 Mcg Tablet, 137 MCG PO 0730, (Reported) Metolazone 2.5 Mg Tablet, 2.5 MG PO DAILY, (Reported) Metoprolol Tartrate 50 Mg Tablet, 50 MG PO BID Prescribed by: GORDON CHAVEZ on 10/06/18 1606 Niacin 500 Mg Tab.er.24h, 500 MG PO DAILY, (Reported) Ondansetron HCl 4 Mg Tab, 4 MG PO Q6H PRN for NAUSEA/VOMITING-1ST LINE, (Reported) Ranitidine HCl 150 Mg Tablet, 150 MG PO BID, (Reported) Solifenacin Succinate 10 Mg Tablet, 10 MG PO HS, (Reported) Patient Home Medication List Home Medication List Reviewed: Yes Review of Systems Review of Systems Constitutional: malaise, weakness EENTM: no symptoms reported Respiratory: no symptoms reported Cardiovascular: no symptoms reported Gastrointestinal: no symptoms reported Genitourinary: see HPI Musculoskeletal: joint pain, muscle weakness, other (peripheral edema) Skin: lesions (on both legs, chronic) Psychiatric/Neurological: No Symptoms Reported Endocrine: No Symptoms Reported Hematologic/Lymphatic: No Symptoms Reported Past Stxdcxs-[place]adgbu Hx Past Med/Social Hx: Reviewed Nursing Past Med/Soc Hx Patient Social History 2nd Hand Smoke Exposure: No Recent Hopitalizations: No Immunizations Up To Date PED Vaccines UTD: Yes Date of Pneumonia Vaccine: Aug 05, 2017 Date of Influenza Vaccine: May 14, 2018 Seasonal Allergies Seasonal Allergies: No Past Medical History Surgeries: No Orthopedic Respiratory: No Cardiac: Yes (chronic edema) High Cholesterol, Hypertension Neurological: No Genitourinary: Yes (urinary retention) Renal Failure Gastrointestinal: Yes Gastroesophageal Reflux, Chronic Constipation Musculoskeletal: Yes Degenerate Disk Disease, Arthritis Endocrine: Yes Hypothyroidsim HEENT: No Cancer: No Anxiety, Depression Integumentary: No Blood Disorders: No Adverse Reaction/Blood Tranf: No Family Medical History Asthma, Heart Disease, Cancer Physical Exam Vital Signs Vital Signs - First Documented 04/14/19 20:22 Temp 99.4 Pulse 83 Resp 18 B/P (MAP) 142/61 (88) Pulse Ox 96 O2 Delivery Nasal Cannula O2 Flow Rate 2.00 Capillary Refill : Height, Weight, BMI Height: 5'4.00" Weight: 170lbs. 0.0oz. 77.193383aj; 31.8 BMI Method:Estimated General Appearance: WD/WN, no apparent distress HEENT: PERRL/EOMI, normal ENT inspection, TMs normal, pharynx normal; No scleral icterus (R), No scleral icterus (L), No photophobia Neck: non-tender, full range of motion, supple, normal inspection Cardiovascular: normal peripheral pulses, regular rate, rhythm, no gallop, no JVD, no murmur, other (bilateral ankle edema with stasis changes) Respiratory: chest non-tender, lungs clear, no respiratory distress, no accessory muscle use, decreased breath sounds Gastrointestinal: normal bowel sounds, non tender, soft, no organomegaly, no pulsatile mass Back: normal inspection, no CVA tenderness, no vertebral tenderness Extremities: normal range of motion, non-tender, normal inspection, normal capillary refill, pedal edema, swelling Neurologic/Psychiatric: ammonia worker II-XII nml as tested, no motor/sensory deficits, alert, normal mood/affect, oriented x 3 Skin: normal color, warm/dry Lymphatic: no adenopathy Progress/Results/Core Measures Suspected Sepsis SIRS Temperature: Pulse: Respiratory Rate: Laboratory Tests 04/14/19 20:40: White Blood Count 11.6H Blood Pressure / Mean: Laboratory Tests 04/14/19 20:40: Creatinine 1.44H, Platelet Count 140, Total Bilirubin 0.4 Results/Orders Lab Results Laboratory Tests Test 04/14/19 20:40 04/14/19 20:50 Range/Units White Blood Count 11.6 H 4.3-11.0 10^3/uL Red Blood Count 3.52 L 4.35-5.85 10^6/uL Hemoglobin 11.6 11.5-16.0 G/DL Hematocrit 36 35-52 % Mean Corpuscular Volume 101 H 80-99 FL Mean Corpuscular Hemoglobin 33 25-34 PG Mean Corpuscular Hemoglobin Concent 33 32-36 G/DL Red Cell Distribution Width 14.6 H 10.0-14.5 % Platelet Count 140 130-400 10^3/uL Mean Platelet Volume 10.8 H 7.4-10.4 FL Neutrophils (%) (Auto) 86 H 42-75 % Lymphocytes (%) (Auto) 7 L 12-44 % Monocytes (%) (Auto) 6 0-12 % Eosinophils (%) (Auto) 0 0-10 % Basophils (%) (Auto) 0 0-10 % Neutrophils # (Auto) 10.0 H 1.8-7.8 X 10^3 Lymphocytes # (Auto) 0.8 L 1.0-4.0 X 10^3 Monocytes # (Auto) 0.8 0.0-1.0 X 10^3 Eosinophils # (Auto) 0.0 0.0-0.3 10^3/uL Basophils # (Auto) 0.0 0.0-0.1 10^3/uL Neutrophils % (Manual) 88 % Lymphocytes % (Manual) 7 % Monocytes % (Manual) 2 % Band Neutrophils 3 % Toxic Granulation 1+ Macrocytosis SLIGHT Sodium Level 139 135-145 MMOL/L Potassium Level 3.9 3.6-5.0 MMOL/L Chloride Level 99 98-107 MMOL/L Carbon Dioxide Level 22 21-32 MMOL/L Anion Gap 18 H 5-14 MMOL/L Blood Urea Nitrogen 38 H 7-18 MG/DL Creatinine 1.44 H 0.60-1.30 MG/DL Estimat Glomerular Filtration Rate 34 BUN/Creatinine Ratio 26 Glucose Level 137 H 70-105 MG/DL Calcium Level 9.7 8.5-10.1 MG/DL Corrected Calcium 9.5 8.5-10.1 MG/DL Total Bilirubin 0.4 0.1-1.0 MG/DL Aspartate Amino Transf (AST/SGOT) 20 5-34 U/L Alanine Aminotransferase (ALT/SGPT) 9 0-55 U/L Alkaline Phosphatase 57 40-136 U/L Total Protein 7.5 6.4-8.2 GM/DL Albumin 4.2 3.2-4.5 GM/DL Urine Color YELLOW Urine Clarity SLIGHTLY CLOUDY Urine pH 5.5 5-9 Urine Specific [place] 1.025 H 1.016-1.022 Urine Protein 1+ H NEGATIVE Urine Glucose (UA) NEGATIVE NEGATIVE Urine Ketones 1+ H NEGATIVE Urine Nitrite POSITIVE H NEGATIVE Urine Bilirubin NEGATIVE NEGATIVE Urine Urobilinogen 0.2 NORMAL MG/DL Urine Leukocyte Esterase TRACE NEGATIVE Urine RBC (Auto) 1+ H NEGATIVE Urine RBC 2-5 H /HPF Urine WBC 10-25 H /HPF Urine Crystals NONE /LPF Urine Bacteria LARGE H /HPF Urine Casts NONE /LPF Urine Mucus SMALL H /LPF Urine Culture Indicated YES My Orders Orders - CIERRA ANTUNEZ MD Cbc With Automated Diff (04/14/19 20:28) Comprehensive Metabolic Panel (04/14/19 20:28) Blood Culture (04/14/19 20:28) Lactic Acid Analyzer (04/14/19 20:28) Ua Culture If Indicated (04/14/19 20:43) Manual Differential (04/14/19 20:40) Urine Culture (04/14/19 20:50) Rocephin 1 Gm Iv (1x Dose) (04/14/19 22:15) Vital Signs/I&O 04/14/19 04/14/19 20:22 21:43 Temp 99.4 Pulse 83 64 Resp 18 18 B/P (MAP) 142/61 (88) 126/75 (92) Pulse Ox 96 94 O2 Delivery Nasal Cannula Nasal Cannula O2 Flow Rate 2.00 2.00 Capillary Refill : Progress Note : Time: 22:04 Progress Note I reviewed the findings with patient and her family. They are agreeable to giving a dose of IV Rocephin in the department and sent home on oral antibiotics pending results of culture. They are to watch closely for changing symptoms or additional problems. Departure Impression Primary Impression: Urinary tract infection Qualified Codes: N30.00 - Acute cystitis without hematuria Additional Impression: Fatigue Qualified Codes: R53.83 - Other fatigue Disposition: 62 DISC/XFER TO IRF Condition: Improved Departure-Patient Inst. Decision time for Depature: 22:06 Referrals: CYNTHIA CARRERA MD (PCP/Family) Primary Care Physician 2-3 days Patient Instructions: Urinary Tract Infection, Adult (DC) Scripts Cephalexin (Cephalexin) 500 Mg Tablet 500 MG PO QID, #40 TAB 0 Refills Prov: CIERRA ANTUNEZ MD 04/14/19 CIERRA ANTUNEZ MD Apr 14, 2019 20:36
[2019-04-14 20:46] LABS: HEMATOCRIT 36 % (35-52); HEMOGLOBIN 11.6 G/DL (11.5-16.0); MEAN CORPUSCULAR HEMOGLOBIN 33 PG (25-34); MEAN CORPUSCULAR HGB CONC 33 G/DL (32-36); MEAN CORPUSCULAR VOLUME 101 FL (80-99); WHITE BLOOD COUNT 11.6 10^3/uL (4.3-11.0)
[2019-04-14 20:47] LABS: BASOPHILS % (AUTO) 0 % (0-10); EOSINOPHILS % (AUTO) 0 % (0-10); LYMPHOCYTES # (AUTO) 0.8 X 10^3 (1.0-4.0); LYMPHOCYTES % (AUTO) 7 % (12-44); MEAN PLATELET VOLUME 10.8 FL (7.4-10.4); MONOCYTES # (AUTO) 0.8 X 10^3 (0.0-1.0); MONOCYTES % (AUTO) 6 % (0-12); NEUTROPHILS % (AUTO) 86 % (42-75); PLATELET COUNT 140 10^3/uL (130-400); RED CELL DISTRIBUTION WIDTH 14.6 % (10.0-14.5)
[2019-04-14 21:19] LABS: BILIRUBIN,TOTAL 0.4 MG/DL (0.1-1.0); CALCIUM 9.7 MG/DL (8.5-10.1); CREATININE SERUM 1.44 MG/DL (0.60-1.30); POTASSIUM 3.9 MMOL/L (3.6-5.0)
[2019-04-14 21:20] LABS: ALBUMIN 4.2 GM/DL (3.2-4.5); TOTAL PROTEIN 7.5 GM/DL (6.4-8.2)
[2019-04-14 21:35] LABS: BAND NEUTROPHILS 3 %; LYMPHOCYTES % (MANUAL) 7 %; MONOCYTES % (MANUAL) 2 %; NEUTROPHILS % (MANUAL) 88 %; TOXIC GRANULATION/VACUOLAZATIO 1+
[2019-04-14 21:43] VITALS: BP 126/75
[2019-04-14 21:56] LABS: CLARITY,URINE SLIGHTLY CLOUDY; COLOR,URINE YELLOW; GLUCOSE, URINE (UA) NEGATIVE (NEGATIVE); KETONES,URINE 1+ (NEGATIVE); PH,URINE 5.5 (5-9); PROTEIN,URINE 1+ (NEGATIVE)
[2019-04-14 21:57] LABS: BACTERIA,URINE LARGE /HPF; BILIRUBIN,URINE NEGATIVE (NEGATIVE); LEUKOCYTE ESTERASE ,URINE TRACE (NEGATIVE); NITRITE,URINE POSITIVE (NEGATIVE); UROBILINOGEN,URINE 0.2 MG/DL (NORMAL)
[2019-04-14] MEDS ORDERED: SULF1TAB35 PO (22:07)
[2019-04-14] MEDS ORDERED: cefTRIAXone FOR IV USE 1,000 MG in WATER (STERILE) FOR INJECTION 10 ML IV ONE (22:15)
[2019-04-14] MEDS ORDERED: CEPH500T PO (22:16)
[2019-04-14 22:21] VITALS: BP 115/64
== END 2019-04-14 22:33 ==
LOC: EDUNIT# 20:22 → ER FS 20:24
DX: N39.0 Urinary tract infection, site not specified (principal); I10 Essential (primary) hypertension; E78.00 Pure hypercholesterolemia, unspecified; F41.9 Anxiety disorder, unspecified; F32.9 Major depressive disorder, single episode, unspecified; K21.9 Gastro-esophageal reflux disease without esophagitis; E03.9 Hypothyroidism, unspecified; Z88.8 Allergy status to other drugs, medicaments and biological substances; Z82.49 Family history of ischemic heart disease and other diseases of the circulatory system
CPT/HCPCS: 36415; 80053; 81000; 83605; 85007; 85027; 87040; 87088; 87186

== ENCOUNTER → 2019-10-29 | Outpatient (CLI) | payer MEDICARE ==
[~2019-10-29] MED LIST changes: +CEPH500T PO; -RANI-10 PO; +RANI-626 PO
== END ==
LOC: LAB FS 22:05
PROVIDERS: ATTEND Family Medicine
DX: N39.0 Urinary tract infection, site not specified (principal)
CPT/HCPCS: 87088